=== PATIENT | female | born 1960 | race Caucasian/White ===

== ENCOUNTER → 2017-03-13 | Day surgery (SDC) | payer OTHER ==
[~2017-03-13] VITALS: Ht 160 cm; Wt 63.5 kg
[~2017-03-13] MED LIST: ABIL1TAB13 PO; BACITRACIN PWD 50,000 UNITS VIAL As Ordered ONE; BUPIVACAINE HCL 0.5% 30 ML VIAL As Ordered ONE; BUPR300T34 PO; BUSP30TA PO; HYDROmorphone HCL 1 MG/ML SYRINGE (J1170) IV PRN; LIDOCAINE 2% MDV 20 ML VIAL As Ordered ONE; LR 1,000 ML IV ONE; LR 1,000 ML IV SCH; MIDAZOLAM INJ 2 MG/2 ML VIAL (J2250) As Ordered ONE; NEOSPORIN GU IRRIG 20 ML VIAL As Ordered ONE; NORCO, ANEXSIA 5/325MG TABLET (HYDROcodone/ACETAMINOPHEN) PO PRN; ONDANSETRON 4MG/2ML VIAL (J2405) As Ordered ONE; ONDANSETRON 4MG/2ML VIAL (J2405) IV PRN; PROPOFOL 200 MG/20 ML VIAL As Ordered ONE; RITA10TA PO; ROCURONIUM BROMIDE 50 MG/5 ML VIAL/SYRINGE As Ordered ONE; dexameTHASONE 4 MG/ML 1ML VIAL (J1100) As Ordered ONE; fentaNYL 100 MCG/2 ML INJECTION (J3010) As Ordered ONE; fentaNYL 100 MCG/2 ML INJECTION (J3010) IV PRN
--- NOTE | 2017-03-13 10:12 | REP ---
Clinical: Status post bunionectomy. Technique: AP, lateral, oblique views of the right foot. Findings: The patient is status post bunionectomy with postoperative changes involving the first and second metatarsal heads and overlying soft tissue swelling with postoperative changes. Impression: Status post bunionectomy. Signed by Joseph Nayak MD 03/13/2017 10:03 A
[2017-03-13 11:05] VITALS: BP 128/75
--- NOTE | 2017-03-13 19:43 | RO ---
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 Long second metatarsal with arthritis, second metatarsophalangeal joint right foot. 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 Long second metatarsal with arthritis, second metatarsophalangeal joint right foot. PROCEDURE: MAYTE BUNIONECTOMY WITH INTERNAL SCREW FIXATION 3.0 x 26 mm TIMES ONE RIGHT FOOT: SURGEON: Junior Garvin DPM DOMESTIC TECHNICIAN: None. ANESTHESIA: Local MAC. IRRIGATION: Dilute bacitracin, neomycin and polymyxin B solution. HEMOSTASIS: Ankle pneumatic tourniquet at 200 mmHg for 63 minutes on the right ankle. HARDWARE UTILIZED: [place] Dart-Fire 3.0 x 26 mm cannulated compression screw and a 2.5 x 14 mm compression screw. DESCRIPTION OF OPERATION: On 03/13/2017, this 57-year-old white female was taken from her hospital room to the operating room and placed on the operating room table in the supine position. Following the induction of intravenous (IV) sedation and local and regional anesthesia, the right lower extremity was prepped and draped in the usual aseptic manner. Attention was directed to the patient's right lower extremity and the following procedure was performed: 1. MAYTE BUNIONECTOMY WITH INTERNAL SCREW FIXATION 3.0 x 26 mm TIMES ONE RIGHT FOOT: 2. SHORTENING SECOND METATARSAL OSTEOTOMY WITH INTERNAL SCREW FIXATION 2.5 mm x 14 mm TIMES ONE RIGHT FOOT: Attention was directed to the patient's right foot where there was noted to be a hallux valgus deformity with spurring over the dorsal aspect of the first metatarsal. At this time a 5 cm incision was placed over the first metatarsophalangeal joint medial to the extensor tendon. The incision was deepened through the subcutaneous tissues and all coursing venous tributaries were identified, underscored, clamped, cut, ligated and electrocoagulated as necessary. A linear capsulotomy was then performed in the same plane as the original skin incision and a capsular periosteal envelope was created dorsally and medially. Attention was directed to the hypertrophied medial eminence on the first metatarsal which was osteotomized from distal to proximal through and through exiting medial to the sesamoidal groove. Spurring was noted over the dorsal aspect of the first metatarsal and extended slightly on to the lateral aspect of the first metatarsal. This was osteotomized with a sagittal saw and rongeur. Dorsal aspect of the proximal phalanx was similarly ostotomized on the dorsal aspect of the first metatarsal. There was noted to be 10% articular cartilage loss on the lateral aspect of the proximal phalanx but approximately 30% on the first metatarsal; however, since considerable cartilage was noted on the phalanx, a salvage procedure was performed. Utilizing a 0.9 mm wire the bone was microfractured to promote fibrocartilaginous ingrowth on the first metatarsal and proximal phalanx. The wound was flushed with copious amounts of dilute bacitracin, neomycin and polymyxin B solution. Attention was directed into the intermetatarsal space where the conjoined tendon which will be dissected free from the fibula sesamoid. A V-shaped osteotomy was then performed on the medial aspect of the first metatarsal with a long plantar and short dorsal wing through the distal metaphysis of the first metatarsal. Upon creation of this osteotomy the capital fragment was transposed approximately 30% of the width of the shaft of the first metatarsal and fixated with a 3.0 x 26 mm cannulated compression screw. It did not cross the inferior cartilage under direct visualization. The redundant cortical spike was osteotomized from dorsal to plantar and rasped with a handheld rasp. The wound was flushed with copious amounts of dilute bacitracin , neomycin and polymyxin B solution. Attention was directed towards closure where the capsular structure coapted and maintained using #2-0 Monocryl in a simple interrupted type fashion. Subcutaneous tissue coapted and maintained utilizing #4-0 Monocryl in a simple interrupted type fashion. The skin incision was coapted and maintained utilizing #5-0 Monocryl in a continuous subcuticular type fashion. Attention was directed to the second metatarsal where the following procedure was performed. SHORTENING SECOND METATARSAL OSTEOTOMY WITH INTERNAL SCREW FIXATION 2.5 mm x 14 mm TIMES ONE RIGHT FOOT: Attention was directed to the patients right foot where an incision was made from the second metatarsophalangeal joint to just proximal to the neck of the second metatarsal. The extensor tendons were retracted in a lateral direction and periosteal capsular incision was then placed at the second metatarsal head. Considerable spurring was noted on the dorsal aspect of the first metatarsal which was osteotomized as well as the base of the proximal phalanx. Unfortunately, there was a central furrow through the head of the second metatarsal encompassing approximately 40% of the cartilage. This was microfractured with a 0.9 wire to promote fibrocartilaginous ingrowth and a shortening second metatarsal osteotomy was performed paralleling the plantar surface of the foot starting at the articular cartilage. The Thea osteotomy was then created. The fragment was placed approximately 4 mm in a proximal direction and then fixated with a 2.5 x 14 mm compression screw. The osteotomy was noted to be stable in all three cardinal planes. Utilizing a rongeur the dorsal ledge was then rongeured and filed with a handheld rasp. The wound was flushed with copious amount of dilute bacitracin, neomycin and polymyxin B solution. The capsule was then coapted and maintained with #2-0 Monocryl in a simple interrupted type fashion. Subcutaneous tissues were coapted and maintained utilizing #4-0 Monocryl in a simple interrupted type fashion. Skin incision was coapted and maintained using #5-0 Monocryl in a continuous subcuticular type fashion. This was additionally reinforced with Steri-Strips. Following the completion of the surgical procedure, 4 mg of dexamethasone sodium phosphate was instilled proximal to the surgical site. Attention was directed towards bandaging where a sterile compressive bandage was applied consisting of Adaptic, 4x4s, 4x4 splints, Reyna and Kerlix. The ankle pneumatic tourniquet was then rapidly deflated and instantaneous capillary filling time was noted to digits of 1 through 5 of the patient's right foot. All surgical specimens removed during the operative procedure were sent to pathology for gross and microscopic examination. Postoperative instructions will be given upon discharge. VEE
== END | disposition home or self-care (01) ==
LOC: M SDC 06:23
PROVIDERS: ATTEND Podiatrist
DX: M20.11 Hallux valgus (acquired), right foot (principal); M20.41 Other hammer toe(s) (acquired), right foot; M19.071 Primary osteoarthritis, right ankle and foot; M20.12 Hallux valgus (acquired), left foot; F41.9 Anxiety disorder, unspecified; F32.9 Major depressive disorder, single episode, unspecified; Z79.899 Other long term (current) drug therapy
CPT/HCPCS: 28296; 28308; 73630; 88300; 97116; C1776; J0690; J1100; J2250; J2405; J3010